=== PATIENT | female | born 1955 | race Caucasian/White ===

== ENCOUNTER 2017-10-10 10:17 | Day surgery (SDC) | payer OTHER ==
[2017-10-09 12:35] VITALS: BMI 21.4
[2017-10-10] MEDS ORDERED: Lidocaine 1% w/Epinephrine 1:200K 30 ML VIAL ONE (12:33)
[2017-10-10] MEDS ORDERED: Fentanyl 100 MCG/2 ML VIAL ONE (12:39)
[2017-10-10] MEDS ORDERED: Ondansetron HCl/PF 4 MG/2 ML Vial ONE (12:40)
[2017-10-10] MEDS ORDERED: Famotidine/PF 20 mg/2ml Vial ONE (12:40)
[2017-10-10] MEDS ORDERED: HYDROmorphone 0.5 MG/0.5 ML SYRINGE ONE (13:30)
[2017-10-10] MEDS ORDERED: Promethazine HCl 25 MG/ML VIAL ONE (14:50)
[2017-10-10] MEDS ORDERED: Hydrocodone-Acetamin 15 ML UDCUP ONE (16:45)
--- NOTE | 2017-10-11 12:49 | OP ---
DATE OF SURGERY: 10/10/2017 PREOPERATIVE DIAGNOSIS: Right thyroid mass. POSTOPERATIVE DIAGNOSIS: Right thyroid mass. PROCEDURES PERFORMED: 1. Right hemithyroidectomy with isthmusectomy. 2. Oval intraoperative laryngeal nerve monitoring. SURGEON: Tanner Edeg M.D. ESTIMATED BLOOD LOSS: 10 mL. COMPLICATIONS: None. ANESTHESIA: GETA. PROCEDURE IN DETAIL: The patient was taken to the operating room and placed supine on the table. Ge neral endotracheal anesthesia was obtained by the Anesthesia staff. The Dedo laryngoscope was then u sed to visualize the vocal cords and confirmed that the laryngeal electrodes of the laryngeal monitor ing tube were between the vocal cords. At this point, the tube was secured to the midline of the upp er lip and a shoulder roll was placed. Following this, the patient was prepped and draped in standar d surgical procedure. Five mL of 1% lidocaine 1:100,000 epinephrine was injected into an anticipated incision low in the neck approximately 2 cm above the clavicle. Following this, an incision was mad e through skin, subcutaneous tissue, and the platysmal layer using a 15 blade. The strap muscles wer e identified and were in the midline. The thyroid gland was encountered. Dissection was c arried immediately adjacent to the thyroid gland. The gland was displaced inferiorly exposing the ri ght superior parathyroid gland and the superior thyroid vessels. The superior thyroid vessels were s uture ligated and the parathyroid glands were preserved and retracted laterally. Following this, the gland was displaced medially and dissection was performed next to the inferior thyroid artery. The recurrent laryngeal nerve was noted to be coursing just posterior to the artery traveling an approxim ately 15-degree angle to the tracheoesophageal groove. As the nerve was identified and was protected , the inferior thyroid artery was suture ligated. The gland was then further displaced laterally tra nsecting at Self's ligaments with the Bovie electrocautery. Following this, the entire right lobe a long with the isthmus of the thyroid was then clamped and removed from the body and sent for frozen s jesse and hemostasis was obtained using the bipolar electrocautery. A small piece of fibrillar was placed over the right recurrent laryngeal nerve. Frozen section analysis by four different patholog ists was concerning for papillary thyroid carcinoma. However, they were unable to confirm this. The refore, the procedure was terminated. The wound was irrigated and cleaned. A small drain was placed . Strap muscles and the platysmal layer and subcuticular layers were reapproximated using Monocryl s titches. Dermabond was placed on the skin. The patient tolerated the procedure well. At this point , laryngeal nerve monitor which had remained on and was monitored throughout the procedure was turned off and the laryngeal electrodes were removed.
== END 2017-10-10 17:15 | disposition home or self-care (01) ==
LOC: SDC 10:17
PROVIDERS: ATTEND Otolaryngology Plastic Surgery within the Head & Neck
PROC: 0GTH0ZZ Resection of Right Thyroid Gland Lobe, Open Approach (ICD-10-PCS; principal; 2017-10-10)
DX: C73 Malignant neoplasm of thyroid gland (principal); E04.1 Nontoxic single thyroid nodule; R43.0 Anosmia; H93.19 Tinnitus, unspecified ear; F32.9 Major depressive disorder, single episode, unspecified; F41.9 Anxiety disorder, unspecified; Z87.891 Personal history of nicotine dependence; Z79.899 Other long term (current) drug therapy
CPT/HCPCS: 36415; 85014; 88307; 88331; 88334; 93005; 93010; 96374; J0131; J1170; J2405; J2550; J3010; S0028

== ENCOUNTER 2017-10-17 08:44 | Observation (INO) | payer OTHER ==
[2017-10-16 12:46] VITALS: BMI 21.4
[2017-10-17] MEDS ORDERED: Glycopyrrolate 0.2 MG/ML 5 ML SYRINGE ONE (13:03)
[2017-10-17] MEDS ORDERED: PROPOFOL 200 MG/20 ML VIAL ONE (13:03)
[2017-10-17] MEDS ORDERED: Dexamethasone 20 MG/5 ML VIAL ONE (13:03)
[2017-10-17] MEDS ORDERED: Ondansetron HCl/PF 4 MG/2 ML Vial ONE (13:03)
[2017-10-17] MEDS ORDERED: Lidocaine 1% PF 5 ML VIAL ONE (13:03)
[2017-10-17] MEDS ORDERED: ePHEDrine/0.9% NaCl/PF SYRINGE 50 mg/10 ml ONE (13:03)
[2017-10-17] MEDS ORDERED: Lidocaine 1% w/Epinephrine 1:200K 30 ML VIAL ONE (13:07)
[2017-10-17] MEDS ORDERED: Fentanyl 100 MCG/2 ML VIAL ONE ×3 (13:11→14:33)
[2017-10-17] MEDS ORDERED: Midazolam HCl 2 mg/2 ml Vial ONE (13:11)
[2017-10-17] MEDS ORDERED: Morphine 5 MG/ML SYRINGE SLOW IVP PRN ×2 (16:29→20:27)
[2017-10-17] MEDS ORDERED: HYDROcodone/Acetaminophen 7.5/325 mg Tablet PO PRN ×3 (16:31→20:26)
[2017-10-17] MEDS ORDERED: Promethazine HCl 25 MG/ML VIAL SLOW IVP PRN ×2 (16:32→20:27)
[2017-10-17] MEDS: HYDROcodone/Acetaminophen 7.5/325 mg Tablet PO PRN ×2 (18:01→22:34)
[2017-10-17] MEDS ORDERED: Sodium Chloride 0.45% 1,000 ML IV SCH (20:30)
[2017-10-18] MEDS: Sodium Chloride 0.45% 1,000 ML IV SCH ×2 (01:56→09:41)
[2017-10-18] MEDS: HYDROcodone/Acetaminophen 7.5/325 mg Tablet PO PRN ×2 (03:17→08:50)
[2017-10-18 09:13] VITALS: BP 139/65; TEMP 97.9
--- NOTE | 2017-10-19 12:51 | OP ---
DATE OF PROCEDURE: 10/17/2017 PREOPERATIVE DIAGNOSIS: Completion thyroidectomy. SURGEON: Dr. Tanner Edge [employer]: Benito Garcia ESTIMATED BLOOD LOSS: 20 mL. COMPLICATIONS: None. ANESTHESIA: GETA with laryngeal nerve monitor. PROCEDURE: The patient was taken to the operating room and placed supine on the table. General endo tracheal anesthesia obtained by the Anesthesia staff. The laryngeal electrodes were noted to be betw een the vocal cords using the video laryngoscope. Tube was secured in the midline upper lip. Should er roll was placed. The patient was prepped and draped in standard surgical fashion. Following this , an incision was made with a 15 blade through the previous incision was gently extended further towa rds the left side of the body approximately 1-2 cm. An incision was made through skin, subcutaneous tissue, and the platysmal layer. Subplatysmal flaps were elevated superiorly and inferiorly. Follow ing this, the strap muscles were in the midline and were retracted laterally to the left. The left remnant thyroid gland was identified, stayed immediately adjacent to the capsule. Dissectio n was carried laterally and medially down the neck. The inferior thyroid artery was identified and w as suture ligated using 4-0 silk. The superior thyroid vascular pedicle was then suture ligated imme diately adjacent to the thyroid capsule. The superior parathyroid and inferior parathyroid glands we re identified and were retracted away from the thyroid gland. Following this, the attachment to the trachea was then carefully dissected using the bipolar electrocautery and Bovie electrocautery. The gland was then freed from the body and was removed. The wound was irrigated. Small drain was placed and the wound was closed using Monocryl stitches to reapproximate the strap muscles and platysmal la zen as well as the subcuticular layer. The wound was then closed using Dermabond. The patient kim ated the procedure well. The drain was noted to be working at the end of the procedure.
== END 2017-10-18 11:30 | disposition home or self-care (01) ==
LOC: SDC 08:44 → 3SE 15:33
PROVIDERS: ADMIT Otolaryngology Plastic Surgery within the Head & Neck; ATTEND Otolaryngology Plastic Surgery within the Head & Neck
PROC: 0GTK0ZZ Resection of Thyroid Gland, Open Approach (ICD-10-PCS; principal; 2017-10-17)
DX: D34 Benign neoplasm of thyroid gland; Z98.890 Other specified postprocedural states; Z90.89 Acquired absence of other organs
CPT/HCPCS: 36415; 82310; 85014; 88307; 96361; 96374; G0378; J1100; J2001; J2250; J2405; J2704; J3010

== ENCOUNTER 2018-06-26 07:14 | Day surgery (SDC) | payer OTHER ==
[2018-06-25 11:36] VITALS: BMI 22.3
[2018-06-26 08:41] LABS: Hemoglobin 13.9 g/dL (12.0-16.0)
[2018-06-26 09:01] LABS: Anion Gap 15 mmol/L (10-20); BUN (Urea Nitrogen) 11 mg/dL (9.8-20.1); Calc. Creatinine Clearance 71 mL/min (70-130); Carbon Dioxide 23 mmol/L (23-31); Chloride 106 mmol/L (98-107); Estimated GFR-MDRD 79; Glucose 90 mg/dL (80-115); Potassium 4.1 mmol/L (3.5-5.1); Sodium 140 mmol/L (136-145)
[2018-06-26] MEDS ORDERED: Lidocaine 1% w/Epinephrine 1:100K 30 ML VIAL ONE (09:53)
[2018-06-26] MEDS ORDERED: Bacitracin Zinc Ointment 30 gm TUBE ONE (09:53)
[2018-06-26] MEDS ORDERED: Famotidine/PF 20 mg/2ml Vial ONE (09:59)
[2018-06-26] MEDS ORDERED: Fentanyl 100 MCG/2 ML VIAL ONE (09:59)
[2018-06-26] MEDS ORDERED: Promethazine HCl 25 MG/ML VIAL ONE (12:36)
--- NOTE | 2018-06-27 08:31 | OP ---
DATE OF PROCEDURE: 06/26/2018 PREOPERATIVE DIAGNOSIS: Right parotid gland mass. POSTOPERATIVE DIAGNOSIS: Right parotid gland mass. PROCEDURE PERFORMED: Right superficial parotidectomy with facial nerve monitor. ESTIMATED BLOOD LOSS: 10 mL. COMPLICATIONS: None. ANESTHESIA: GETA. PROCEDURE IN DETAIL: The patient was taken to the operating room and placed supine on the table. General endotracheal anesthesia was obtained by the anesthesia staff. Tube was secured in the left lower lip. Shoulder roll was placed. The patient was prepped and draped in standard surgical fashion. Following this, a modified Darwin incision was made in the preauricular crease and then extended around the earlobe and brought on to a crease in the neck. Following this, the skin flaps were elevated with a fat up, fat down technique. The parotid gland was then freed inferiorly from the sternocleidomastoid muscle and dissection was then carried the tragal cartilage. The facial nerve was identified between the stylomastoid foramen approximately 5 mm medial to the tympanomastoid suture line. Following this, the nerve was dissected laterally. A 1.5 cm mass was found in the superficial lobe between the upper and lower divisions of the facial nerves. Keeping the facial nerves in close visualization along with facial nerve monitor, the mass was removed with a normal cuff of tissue. Following this, the wound was irrigated. The parotid fascia was returned to its normal position. Subcutaneous stiches of Monocryl were placed and then the skin was closed using Monocryl and Prolene stitches. The patient tolerated the procedure well. Job ID: [id number]
== END 2018-06-26 13:50 | disposition home or self-care (01) ==
LOC: SDC 07:14
PROVIDERS: ATTEND Otolaryngology Plastic Surgery within the Head & Neck
PROC: 0CB80ZZ Excision of Right Parotid Gland, Open Approach (ICD-10-PCS; principal; 2018-06-26)
DX: D11.0 Benign neoplasm of parotid gland (principal); K21.9 Gastro-esophageal reflux disease without esophagitis; M26.609 Unspecified temporomandibular joint disorder, unspecified side; Z79.899 Other long term (current) drug therapy
CPT/HCPCS: 80048; 85014; 85018; 88307; 88341; 88342; 93005; 93010; 96374; J0131; J2001; J2550; J3010; S0028